=== PATIENT | male | born 2000 | race Caucasian/White ===

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

== ENCOUNTER 2020-08-16 13:36 | Emergency (ER) | payer BC, SELFPAY ==
[2020-08-16 13:38] VITALS: BP 136/86; PULSE 95; RESP 18; TEMP 36.7; O2SAT 100; BMI 18.3
[2020-08-16 16:05] LABS: Bedside Glucose 83 mg/dL (70-110)
[2020-08-16 16:17] VITALS: RESP 15
[2020-08-16] MEDS: 0.9% Normal Saline 1,000 ML 1000 ML IV (16:21)
[2020-08-16 16:24] LABS: Absolute Lymphocyte Count 1.38 X10^3/uL (0.83-4.51); Absolute Neutrophil Count 4.7 X10^3/uL (2.0-7.7); Basophil# 0.03 X10^3/uL; Basophil% 0.4 % (0-1); Eosinophil# 0.17 X10^3/uL; Eosinophils% 2.5 % (0-5); Hematocrit 49.8 % (40-54); Hemoglobin 16.8 g/dL (13.0-16.5); Lymphocyte # 1.38 X10^3/ul (4.0); Mean Corp Hgb Conc 33.7 g/dL (32-36); Mean Corpuscular Hgb 28.3 pg (27.0-32.0); Monocyte# 0.61 X10^3/uL; Monocyte% 8.9 % (0-10); NRBC Flagged by Analyzer 0 % (0-5); Neutrophil # 4.68 X10^3/uL (2.7-7.7); Neutrophil % 67.9 % (47-70); Platelet Count 345 K/mm3 (150-450); RBC Distribution Width CV 11.9 % (11.6-14.6); RBC Distribution Width SD 36.2 fl (35.1-43.9); Red Blood Count 5.93 M/mm3 (4.6-6.2); White Blood Count 6.9 K/mm3 (4.4-11.0)
[2020-08-16 16:36] LABS: Anion Gap 3 (5-15); BUN 11 mg/dL (7-18); Calcium,Total 9.6 mg/dL (8.5-10.1); Chloride 104 mmol/L (98-107); EST Glomerular Filtration Rate 101 mL/min (>60); Est Glom Filt Rate - Afr Amer 122 mL/min (>60); Estimated Creatinine Clearance 91.48 ml/min; Glucose 90 mg/dL (74-106); Potassium 3.9 mmol/L (3.5-5.1); Sodium Level 138 mmol/L (136-145)
--- NOTE | 2020-08-16 16:40 | ED.DCSUM_ITS ---
- ER Visit Summary Date of Service: 08/16/20 Chief Complaint: Weakness History of Present Illness: The patient is a 20 M with no primary care physician. He complains of generalized weakness off and on for the past 2 weeks. He denies fever, chills, sore throat, cough, chest pain, shortness of breath. No abdominal pain, nausea, vomiting, or diarrhea. No melena hematochezia. No dysuria or frequency. Physical Examination: Vitals: Stable. Afebrile. General: Well-nourished and well-developed. Head: Normocephalic atraumatic. Neck: Supple, no lymphadenopathy. No JVD. Nontender. Cardiovascular: Regular rate and rhythm. No murmurs. Respiratory: No respiratory distress. Clear to auscultation bilaterally. Abdominal: Soft, nontender, nondistended, normal bowel sounds. No guarding, rebound, or peritoneal signs. Back: Nontender. Extremities: Nontender, no edema. Skin: Normal color, no rash. Neurologic: Alert and oriented ?3. Cranial nerves II through XII are intact. Normal strength and sensation. Psych: Normal affect. Test Results: CBC shows a hemoglobin of 16.8.Chem-7 is normal. Accu-Chek is 83. Emergency Department Course and Treatment: Patient had an IV placed. He was given a liter normal saline. He is resting comfortably. Treatment Plan: Patient will be discharged instructions to push fluids. Follow- up with the [facility] in 3 to 5 days if not improving. Return to the emergency department for any worsening symptoms. Disposition: To home in improved and stable condition. Impression: 1. Weakness, uncertain cause. This note was generated with [employer] dictation software. It may contain incorrect words, spelling, and punctuation that were not noted in review of the chart prior to signing ED Disposition - Plan for ED Patient: Instructions: ED Weakness [facility] Referrals: Nuria [facility] [NON-STAFF] - 3-5 Days if not improving
[2020-08-16 17:09] VITALS: BP 122/88; PULSE 84; RESP 16; O2SAT 99
== END 2020-08-16 17:10 | disposition home or self-care (01) ==
LOC: ED 15:31
PROVIDERS: Emergency Provider Emergency Medicine
DX: R53.1 Weakness (principal)
CPT/HCPCS: 80048; 82962; 85025; 96360; 99283; J7030

== ENCOUNTER 2021-06-05 14:42 | Emergency (ER) | payer BC, SELFPAY ==
[2021-06-05 14:43] VITALS: BP 123/70; PULSE 80; RESP 16; TEMP 36.8; O2SAT 99; BMI 20.3
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
--- NOTE | 2021-06-05 15:15 | EDS_ITS ---
HPI HPI - GI History of Present Illness Chief Complaint: Abd Pain Detail of Chief Complaint: Abdominal pain for 4 days Informant: patient Abdominal Pain/Flank Pain Current Severity: 6/10 Nausea/Vomiting/Emesis GI Symptom: Positive for Nausea Narrative Narrative: Patient presents to the emergency department with complaint of abdominal pain that he has had for the last 4 days. Patient states that the pain is underneath his left ribs and at times it is in his right lower quadrant. Patient was told by work that he needed to have the pain evaluated before he came back. Patient denies any fevers. He has had some mild nausea but no vomiting. He denies blood in his stool or black tarry stool. He denies urinary symptoms. Patient is never had this pain before. He rates it a 6 out of 10. Patient states the pain is been continuous. Food does seem to affect it and make it worse.. Prior similar symptoms: No PFSH PFSH Home Medications lansoprazole [Prevacid] 30 mg PO DAILY 28 Days #28 cap 06/05/21 [Rx Last Taken Unknown] Allergy/AdvReac Type Severity Reaction Status Date / Time No Known Allergies Allergy Verified 06/05/21 14:44 Social History Smoking Status: Former smoker ROS ROS ED Constitutional Constitutional ED: Reports systems reviewed and no addt'l complaints, except as documented; Denies body ache(s), change in weight or chills Eyes Eyes: Denies acute decrease in peripheral vision, change in vision, double vision or loss of vision ENT ENT ED: Reports none; Denies ear pain, lip swelling, loss taste/smell, neck pain, otalgia or sore throat Cardiovascular Cardiovascular: Reports none; Denies abdominal pain, chest pain with activity, leg edema, lightheadedness, palpitations, rapid heart rate or syncope Respiratory/Chest Respiratory/Chest: Reports none; Denies change in mental status, dry cough, dyspnea, hemoptysis, shortness of breath at rest or shortness of breath with exertion Gastrointestinal Gastrointestinal: Reports none, abdominal pain and nausea; Denies change in stool character, diarrhea, hematemesis, hematochezia, melena, rectal bleeding or vomiting Genitourinary Genitourinary ED: Reports none; Denies abdominal discomfort, anuria, dysuria, genital pain or polyuria Musculoskeletal Musculoskeletal: Reports none; Denies arthralgias, back pain, difficulty walking, extremity pain, muscle weakness or myalgias Integumentary Reports none; Denies abscess or rash Neurologic Neurologic: Reports none; Denies abnormal gait, confusion, focal weakness, frequent falls, headache(s), loss of vision, numbness, paresthesias, radicular pain, vertigo or weakness Psychiatric Psychiatric: Reports systems reviewed and no addt'l complaints, except as documented and none; Denies behavioral changes, confusion, difficulty concentrating, hallucinations, suicidal ideation, tactile hallucinations or visual hallucinations Endocrine Endocrinology: Denies none, cold intolerance, excessive sweating, fatigue or heat intolerance Hematologic/Lymphatic Hematologic/Lymphatic: Reports none; Denies anemia, easy bleeding or easy b ruising Allergic/Immunologic Allergic/Immunologic ED: Denies as per HPI, none, lip swelling, mouth swelling, throat swelling, tongue swelling or hives EXAM Physical Exam Const Vital Signs: 06/05/21 14:43 Temperature 98.2 F Temperature Source Temporal Pulse Rate 80 Respiratory Rate 16 Blood Pressure 123/70 H Blood Pressure Mean 87 Pulse Ox 99 Oxygen Delivery Method Room Air Positive well nourished and well developed General Appearance ED: well developed and NAD HEENT Reports TM's clear and moist mucous membranes normocephalic and atraumatic; Negative for trauma or tenderness Tympanic Membrane ED: Yes TM's clear Eyes PERRL and EOMs intact bilaterally General Eye ED: Negative for pale conjunctiva or scleral icterus Neck no lymphadenopathy, supple and no JVD General: Negative for tenderness Chest Wall inspection of chest normal and palpation of chest normal Chest: Negative for tenderness Resp normal respiratory effort and clear to auscultation bilaterally Effort and Inspection: Negative for respiratory distress or pain with movement Auscultation: Negative for rhonchi, wheezes or diminished lung sounds Cardio regular rate, regular rhythm, S1 normal heart sound, S2 normal heart sound and no murmurs Peripheral Pulses: pulses 2+ throughout GI normal to inspection, nondistended, normoactive bowel sounds, soft to palpation, non-distended and no masses GI Narrative: Patient has diffuse tenderness to palpation over the epigastric region as well as the left upper quadrant with some mild guarding. Patient also with right lower quadrant tenderness on exam. There is no rebound, rigidity, or peritoneal signs. Palpation: tender Back/Spine no CVA tenderness and no thoracic nor lumbar tenderness Extremity normal to inspection General Extremety ED: Negative for edema General Extremity: Negative for edema Neuro oriented x3, CN's II-XII intact bilaterally, no sensory deficits noted and gait normal Sensorium / Orientation: awake, alert, oriented to person, oriented to place and oriented to time Motor Exam: strength 5/5 throughout and strength abnormal Psych mental status grossly normal Skin no rashes or lesions noted and no wounds MDM MDM MDM Narrative Medical decision making narrative: Patient's work-up in the emergency department unremarkable. I will start him on Prevacid for 30 days and refer to general surgery for follow-up if his symptoms persist may need further investigation such as possibly EGD and colonoscopy. Patient advised to return if worsening pain, fever, vomiting, or condition should worsen anyway. Lab Data Attestation: I reviewed the patient's lab results. Labs: Laboratory Results - last 24 hr 06/05/21 06/05/21 06/05/21 15:29 15:29 15:29 WBC 4.9 RBC 5.75 Hgb 16.2 Hct 47.4 MCV 82.4 MCH 28.2 MCHC 34.2 RDW Std Deviation 36.4 RDW Coeff of Caty 12.0 Plt Count 230 MPV 8.8 Immature Gran % (Auto) 0.200 Neut % (Auto) 61.9 Lymph % (Auto) 18.3 L [place] % (Auto) 16.8 H Eos % (Auto) 2.4 Baso % (Auto) 0.4 Absolute Neuts (auto) 3.1 Absolute Lymphs (auto) 0.90 Nucleated RBC % 0 Sodium 137 Potassium 3.8 Chloride 103 Carbon Dioxide 31.0 Anion Gap 3 L BUN 11 Creatinine 1.17 Estim Creat Clear Calc 83.32 Est GFR (MDRD) Af Amer 101 Est GFR (MDRD) Non-Af 84 BUN/Creatinine Ratio 9.4 L Glucose 81 Lactic Acid 0.8 Calcium 8.8 Total Bilirubin 1.30 H AST 11 L ALT 25 Alkaline Phosphatase 57 Total Protein 8.5 H Albumin 4.2 Globulin 4.3 H Albumin/Globulin Ratio 1.0 Lipase 48 L Urine Color Urine Clarity Urine pH Ur Specific [place] Urine Protein Urine Glucose (UA) Urine Ketones Urine Occult Blood Urine Nitrite Urine Bilirubin Urine Urobilinogen Ur Leukocyte Esterase Urine RBC Urine WBC Ur Squamous Epith Cells Urine Bacteria Urine Mucus 06/05/21 15:45 WBC RBC Hgb Hct MCV MCH MCHC RDW Std Deviation RDW Coeff of Caty Plt Count MPV Immature Gran % (Auto) Neut % (Auto) Lymph % (Auto) [place] % (Auto) Eos % (Auto) Baso % (Auto) Absolute Neuts (auto) Absolute Lymphs (auto) Nucleated RBC % Sodium Potassium Chloride Carbon Dioxide Anion Gap BUN Creatinine Estim Creat Clear Calc Est GFR (MDRD) Af Amer Est GFR (MDRD) Non-Af BUN/Creatinine Ratio Glucose Lactic Acid Calcium Total Bilirubin AST ALT Alkaline Phosphatase Total Protein Albumin Globulin Albumin/Globulin Ratio Lipase Urine Color Yellow Urine Clarity Clear Urine pH 6.5 Ur Specific [place] 1.015 Urine Protein 15 H Urine Glucose (UA) Normal Urine Ketones 5 H Urine Occult Blood 10 H Urine Nitrite Negative Urine Bilirubin 1 H Urine Urobilinogen 4 H Ur Leukocyte Esterase 25 H Urine RBC 0 SEEN Urine WBC 0 SEEN Ur Squamous Epith Cells 0 SEEN Urine Bacteria RARE Urine Mucus 1+ Radiography Diagnostic Testing: Radiology Impression Abdomen/Pelvis CT 06/05/21 15:14 IMPRESSION: 1 to 2 mm nonobstructing right lower pole calyceal stone. Otherwise unremarkable unenhanced CT of the abdomen and pelvis. Electronically Signed: Amos Venegas MD at 16:40 EDT Tel , Service support , Discharge Plan Triage Chief Complaint: Abd Pain ED Provider: Marquez Bell Dx/Rx/DC Orders Clinical Impression: Abdominal pain Instructions: ED Unknown Causes of Abdominal ... Prescriptions: New lansoprazole [Prevacid] 30 mg capsule,delayed release(DR/EC) 30 mg PO DAILY 28 Days Qty: 28 RF: 0 Primary Care Provider: Lara Alonso Referrals: Lara Alonso MD [Primary Care Provider] - Sherry Brice MD [STAFF PHYSICIAN] - 3-5 Days Disposition Disposition: Home, Self Care
[2021-06-05] MEDS: 0.9% Normal Saline 1,000 ML 125 ML IV (15:32)
[2021-06-05 15:36] LABS: Absolute Neutrophil Count 3.1 X10^3/uL (2.0-7.7); Basophil# 0.02 X10^3/uL; Basophil% 0.4 % (0-1); Eosinophil# 0.12 X10^3/uL; Eosinophils% 2.4 % (0-5); Hematocrit 47.4 % (40-54); Hemoglobin 16.2 g/dL (13.0-16.5); Lymphocyte % 18.3 % (19-41); Mean Corp Hgb Conc 34.2 g/dL (32-36); Mean Corpuscular Hgb 28.2 pg (27.0-32.0); Mean Corpuscular Volume 82.4 fL (80-94); Mean Platelet Vol. 8.8 fl (6.2-12.0); Monocyte# 0.83 X10^3/uL; Monocyte% 16.8 % (0-10); NRBC Flagged by Analyzer 0 % (0-5); Neutrophil # 3.05 X10^3/uL (2.7-7.7); Neutrophil % 61.9 % (47-70); Platelet Count 230 K/mm3 (150-450); RBC Distribution Width SD 36.4 fl (35.1-43.9); Red Blood Count 5.75 M/mm3 (4.6-6.2); White Blood Count 4.9 K/mm3 (4.4-11.0)
[2021-06-05 15:50] LABS: Red Blood Cells-Urine 0 SEEN /hpf (0-5); Squamous Epithelial Cells - UA 0 SEEN /hpf (0-5); White Blood Cells 0 SEEN /hpf (0-5)
[2021-06-05 15:55] LABS: Color, Urine Yellow (Yellow); Glucose, Dipstick Normal (Normal); Ketone-Dipstick 5 mg/dl (Negative); Leukocyte Esterase-Dipstick 25 /ul (Negative); Nitrite-Dipstick Negative (Negative); Occult Blood-Urine 10 /ul (Negative); Protein-Dipstick 15 mg/dl (Negative); Specific Gravity, Urine 1.015 (1.002-1.030); Urine Clarity Clear (Clear); Urine Urobilinogen 4 mg/dl (Normal); Urine pH 6.5 (5.0 - 8.0)
[2021-06-05 15:56] LABS: AST(SGOT) 11 U/L (15-37); Alanine Aminotransfer ALT/SGPT 25 U/L (16-61); Albumin, Serum 4.2 g/dL (3.2-5.0); Alkaline Phosphatase 57 U/L (45-117); Anion Gap 3 (5-15); BUN 11 mg/dL (7-18); BUN/Creat Ratio 9.4 RATIO (10-20); Calcium,Total 8.8 mg/dL (8.5-10.1); Chloride 103 mmol/L (98-107); Creatinine, Serum 1.17 mg/dL (0.70-1.30); EST Glomerular Filtration Rate 84 mL/min (>60); Est Glom Filt Rate - Afr Amer 101 mL/min (>60); Estimated Creatinine Clearance 83.32 ml/min; Globulin 4.3 g/dL (2.2-4.2); Glucose 81 mg/dL (74-106); Lipase 48 U/L (73-393); Potassium 3.8 mmol/L (3.5-5.1); Protein, Total 8.5 g/dL (6.4-8.2); Sodium Level 137 mmol/L (136-145)
[2021-06-05 16:03] LABS: Lactic Acid 0.8 mmol/L (0.4-1.9)
[2021-06-05 16:09] LABS: Urine Bilirubin Dipstick 1 mg/dL (Negative)
[2021-06-05 16:10] LABS: Bacteria RARE /hpf (None Seen); Mucous, Urine 1+ /hpf (<or=2+)
== END 2021-06-05 17:12 | disposition home or self-care (01) ==
PROVIDERS: Emergency Provider Emergency Medicine; PCP Pediatrics
DX: R10.13 Epigastric pain (principal); R10.12 Left upper quadrant pain; R10.31 Right lower quadrant pain; Z87.891 Personal history of nicotine dependence
CPT/HCPCS: 74176; 80053; 81001; 83605; 83690; 85025; 96360; 96361; 99284; J7030; A4216

== ENCOUNTER 2021-10-11 18:22 | Emergency (ER) | payer OTHER, BC, SELFPAY ==
[2021-10-11 18:22] VITALS: BP 129/86; PULSE 85; RESP 16; TEMP 35.9; O2SAT 100; BMI 20.3
--- NOTE | 2021-10-11 19:42 | EX.ED.VIS.UR ---
HPI HPI - URI History of Present Illness Chief Complaint: Cold Sx Narrative Narrative: 21-year-old male presenting with a cough, mild headache for 2 to 3 days. Patient states he was at work and was sent home. He states his work requested to go to the emergency room to be tested for Covid. He denies chest pain or shortness of breath. He denies fever or chills. He states he feels otherwise well and would work. ROS ROS ED Constitutional Constitutional ED: Denies chills or fever(s) Eyes Eyes: Denies blurry vision or diplopia ENT ENT ED: Denies rhinorrhea or sore throat Cardiovascular Cardiovascular: Denies chest pain or palpitations Respiratory/Chest Respiratory/Chest: Reports cough; Denies dyspnea Gastrointestinal Gastrointestinal: Denies abdominal pain, nausea or vomiting Genitourinary Genitourinary ED: Denies dysuria or hematuria Musculoskeletal Musculoskeletal: Denies arthralgias, myalgias or neck pain Integumentary Denies Abrasions or rash Neurologic Neurologic: Reports headache(s); Denies paresthesias or weakness PFSH PFSH Medical History Abdominal pain Dark stools LUQ abdominal pain Nausea Allergy/AdvReac Type Severity Reaction Status Date / Time No Known Allergies Allergy Verified 10/11/21 18:25 Family History Father Diabetes Surgical History Hx of knee surgery Social History Smoking Status: Current some day smoker tobacco type: cigarettes alcohol intake: current alcohol intake frequency: a few times a week substance use type: does not use caffeine: Yes what type of physical activity do you participate in: none frequency: does not exercise EXAM Physical Exam Const Vital Signs: 10/11/21 18:22 10/11/21 19:57 Temperature 96.6 F L Temperature Source Temporal Pulse Rate 85 Respiratory Rate 16 Respiratory Pattern Normal Blood Pressure 129/86 H Blood Pressure Mean 100 Pulse Ox 100 Oxygen Delivery Method Room Air Positive well nourished General Appearance ED: NAD; Negative for pallor HEENT Reports moist mucous membranes normocephalic and atraumatic Eyes PERRL and EOMs intact bilaterally Resp normal respiratory effort and clear to auscultation bilaterally Cardio Rate: regular rate Rhythm: regular rhythm Neuro oriented x3 and CN's II-XII intact bilaterally Sensorium / Orientation: alert Psych mental status grossly normal Skin General Skin Exam: Negative for jaundice or pallor MDM MDM MDM Narrative Medical decision making narrative: Patient request testing for COVID-19 for work. He has a mild cough and mild headache. He declines analgesia. Patient will be tested with rapid Covid. Patient prefers to be discharged home in have his wrote texted to him. Patient given quarantine restrictions and return precautions. Patient's COVID-19 testing came back positive. Patient previously given quarantine instruction return precautions. Impression: 1. COVID-19 Discharge Plan Triage Chief Complaint: Cold Sx ED Provider: Blake Karimi Dx/Rx/DC Orders Instructions: Coronavirus Disease 2019 (COVID-19): Caring for Yourself or Others Primary Care Provider: Lara Alonso Referrals: Lara Alonso MD [Primary Care Provider] - Disposition Disposition: Home, Self Care Discharge Date/Time: 10/11/21 20:30
== END 2021-10-11 20:30 | disposition home or self-care (01) ==
PROVIDERS: Emergency Provider Student in an Organized Health Care Education/Training Program; PCP Pediatrics
DX: U07.1 COVID-19 (principal); F17.210 Nicotine dependence, cigarettes, uncomplicated
CPT/HCPCS: 87426; 99282

== ENCOUNTER 2024-01-21 22:12 | Emergency (ER) | payer OTHER, SELFPAY ==
[2024-01-21 22:13] VITALS: BP 115/80; PULSE 95; RESP 16; TEMP 36.6; O2SAT 100
[2024-01-21] MEDS: 0.9% Normal Saline (1000mL) 1,000 ML 1000 ML IV ×2 (22:42→23:45)
[2024-01-21 22:50] VITALS: PULSE 68; RESP 24
[2024-01-21 23:25] VITALS: PULSE 61; RESP 12; TEMP 37.1; O2SAT 100
[2024-01-21 23:40] LABS: Absolute Lymphocyte Count 0.59 X10^3/uL (0.83-4.51); Absolute Neutrophil Count 14.6 X10^3/uL (2.0-7.7); Basophil# 0.05 X10^3/uL; Basophil% 0.3 % (0-1); Eosinophil# 0.06 X10^3/uL; Eosinophils% 0.4 % (0-5); Hematocrit 51.2 % (40-54); Hemoglobin 17.6 g/dL (13.0-16.5); Lymphocyte # 0.59 X10^3/ul (0.83-4.51); Lymphocyte % 3.6 % (19-41); Mean Corp Hgb Conc 34.4 g/dL (32-36); Mean Corpuscular Hgb 27.8 pg (27.0-32.0); Mean Platelet Vol. 9.5 fl (6.2-12.0); Monocyte# 1.08 X10^3/uL; Monocyte% 6.6 % (0-10); NRBC Flagged by Analyzer 0 % (0-5); Neutrophil % 88.7 % (47-70); POSITIVE DIFFERENTIAL YES; Platelet Count 292 K/mm3 (150-450); RBC Distribution Width CV 12.3 % (11.6-14.6); RBC Distribution Width SD 35.8 fl (35.1-43.9); Red Blood Count 6.32 M/mm3 (4.6-6.2); White Blood Count 16.5 K/mm3 (4.4-11.0)
[2024-01-21] MEDS: DiphenhydrAMINE 50 MG/ML Syringe IV (23:42)
[2024-01-21] MEDS: proCHLORPERazine 10 MG/2 ML Vial IV (23:42)
[2024-01-21 23:59] LABS: AST(SGOT) 17 U/L (15-37); Alanine Aminotransfer ALT/SGPT 36 U/L (16-61); Albumin, Serum 5.1 g/dL (3.2-5.0); Alkaline Phosphatase 63 U/L (45-117); Anion Gap 11 (5-15); BUN 15 mg/dL (7-18); BUN/Creat Ratio 11.7 RATIO (10-20); Bilirubin, Direct 1.25 mg/dL (0.00-0.30); Calcium,Total 10.1 mg/dL (8.5-10.1); Chloride 103 mmol/L (98-107); Creatinine, Serum 1.28 mg/dL (0.70-1.30); EST Glomerular Filtration Rate 74 mL/min (>60); Est Glom Filt Rate - Afr Amer 89 mL/min (>60); Globulin 4.2 g/dL (2.2-4.2); Glucose 128 mg/dL (74-106); Potassium 4.1 mmol/L (3.5-5.1); Protein, Total 9.3 g/dL (6.4-8.2); Sodium Level 138 mmol/L (136-145)
--- NOTE | 2024-01-22 00:01 | EX.ED.DYSGE1 ---
HPI History of Present Illness Chief Complaint: Nausea/Vomiting/Diarrhea Informant: patient and family Narrative Narrative: 23-year-old male presenting to the emergency room with vomiting diarrhea. It is reported that the patient has been around multiple family members who have had vomiting and diarrhea. His symptoms began today. Denies any bad food exposure, recent travel, rashes, fever. No blood in the stool or the vomit. No recent alcohol use. Patient states that he cannot seem to get the nausea to calm down. PFSH PFSH Medical History Abdominal pain LUQ abdominal pain Nausea Allergy/AdvReac Type Severity Reaction Status Date / Time No Known Allergies Allergy Verified 01/21/24 22:14 Family History Father Diabetes Surgical History Hx of knee surgery Social History Smoking Status: Current some day smoker tobacco type: cigarettes alcohol intake: current alcohol intake frequency: a few times a week substance use type: does not use caffeine: Yes what type of physical activity do you participate in: none frequency: does not exercise ROS ROS ED Constitutional Constitutional ED: Denies chills, fever(s) or weight loss Eyes Eyes: Denies change in vision or diplopia ENT ENT ED: Denies ear pain, rhinorrhea or sore throat Cardiovascular Cardiovascular: Denies chest pain, orthopnea, palpitations or racing heartbeat Respiratory/Chest Respiratory/Chest: Denies cough, dyspnea or orthopnea Gastrointestinal Gastrointestinal: Reports diarrhea, nausea and vomiting; Denies abdominal pain Genitourinary Genitourinary ED: Denies dysuria, hematuria or urinary frequency Musculoskeletal Musculoskeletal: Denies arthralgias, back pain, myalgias or neck pain Integumentary Denies abscess or rash Neurologic Neurologic: Denies headache(s) or weakness Psychiatric Psychiatric: Denies anxiety, depression, suicidal ideation or suicidal thoughts Endocrine Endocrinology: Denies polydipsia, polyphagia or polyuria Allergic/Immunologic Allergic/Immunologic ED: Denies mouth swelling, tongue swelling or urticaria EXAM Physical Exam Narrative Exam Narrative: Patient is constantly retching. Const Vital Signs: 01/21/24 22:13 01/21/24 22:49 01/21/24 22:50 Temperature 97.9 F Temperature Source Temporal Pulse Rate 95 68 Respiratory Rate 16 24 H Respiratory Effort Normal Respiratory Pattern Normal Blood Pressure 115/80 Blood Pressure Mean 91 Pulse Ox 100 Oxygen Delivery Method Room Air Room Air 01/21/24 23:25 Temperature 98.7 F Temperature Source Oral Pulse Rate 61 Respiratory Rate 12 Respiratory Effort Respiratory Pattern Blood Pressure Blood Pressure Mean Pulse Ox 100 Oxygen Delivery Method Room Air Positive well nourished and well developed General Appearance ED: well developed HEENT Reports normocephalic, head/scalp atraumatic and moist mucous membranes Eyes PERRL and EOMs intact bilaterally Neck no lymphadenopathy, supple and no JVD Resp normal respiratory effort and clear to auscultation bilaterally Cardio regular rate, regular rhythm and no murmurs GI normal to inspection, nondistended, normoactive bowel sounds and non-tender Palpation: soft Back/Spine no CVA tenderness and normal ROM Extremity normal to inspection General Extremety ED: Negative for edema General Extremity: Negative for edema Neuro oriented x3 and CN's II-XII intact bilaterally Sensorium / Orientation: alert Motor Exam: strength 5/5 throughout Psych mental status grossly normal Mood & Affect: Negative for depressed or tearful Skin no rashes or lesions noted and no wounds MDM MDM MDM Narrative Medical decision making narrative: IV established patient received IV fluids Compazine and Benadryl. White count is elevated 16.5 which may be stress-induced. Hemoglobin 17.6 possibly representing some hemoconcentration but could also be elevated due to tobacco use. Total bilirubin 3.2 with a direct bili of 1.25. Transaminases and alk phos are normal. He does have a history of an elevated bilirubin. Glucose of 128 BUN of 15 anion gap of 11 CO2 24. Patient will be reassessed after his IV fluids. He currently is resting comfortably. History & Record Review Discussion w/independent historian: Patient and Family Lab Data Attestation: I reviewed the patient's lab results. Labs: Laboratory Results - last 24 hr 01/21/24 22:20 WBC 16.5 H RBC 6.32 H Hgb 17.6 H Hct 51.2 MCV 81.0 MCH 27.8 MCHC 34.4 RDW Std Deviation 35.8 RDW Coeff of Caty 12.3 Plt Count 292 MPV 9.5 Immature Gran % (Auto) 0.400 Neut % (Auto) 88.7 H Lymph % (Auto) 3.6 L [place] % (Auto) 6.6 Eos % (Auto) 0.4 Baso % (Auto) 0.3 Absolute Neuts (auto) 14.6 H Absolute Lymphs (auto) 0.59 L Nucleated RBC % 0 Sodium 138 Potassium 4.1 Chloride 103 Carbon Dioxide 24.0 Anion Gap 11 BUN 15 Creatinine 1.28 Est GFR (MDRD) Af Amer 89 Est GFR (MDRD) Non-Af 74 BUN/Creatinine Ratio 11.7 Glucose 128 H Calcium 10.1 Total Bilirubin 3.20 H Direct Bilirubin 1.25 H AST 17 ALT 36 Alkaline Phosphatase 63 Total Protein 9.3 H Albumin 5.1 H Globulin 4.2 Discharge Plan Triage Chief Complaint: Nausea/Vomiting/Diarrhea ED Provider: Cali Thomas Dx/Rx/DC Orders Primary Care Provider: Lara Alonso Referrals: Lara Alonso MD [Primary Care Provider] -
[2024-01-22 00:35] VITALS: BP 120/79; PULSE 64; RESP 12; TEMP 36.6; O2SAT 100
--- OUTSIDE RECORDS SUMMARY | 2024-01-22 00:48 | XMS RPT_ITS | CCD ---
Author Name Unknown Address [address] [place] [address] Organization [facility] Results Test Name Value Interpretation Reference Range Facil ity Progress note 06-05-2021 Note Date & Type Note Facility 06-05-2021 Note HNO ID: [id number] Author: Vern Ewing APRN.SENIOR SOFTWARE TEST ENGINEER Service: ? Author Type: Nurse Practitioner Type: Progress Notes Filed: 06/05/2021 2:39 PM Note Text: Subjective HPI HPI Dillna Muniz is a 21 year old male who presents today for CC of left sided abd pain. This started 4 days ago, getting worse, rates 7/10. Has tried nothing for relief. Symptoms are worsened by eating anything, touching area, or twisting body. No injury noted. Denies bowel habit changes. Denies urinary symptoms. .Patient presents with: abdomen and groin pain: x 4 days-he thinks it may be a hernia PAST MEDICAL HISTORY Diagnosis Date - PM - PAST MEDICAL HISTORY OF 07/07/2005 normal color vision PAST SURGICAL HISTORY Procedure Laterality Date - CIRCUMCISION,OTHR, ALLERGIES Patient has no known allergies. MEDICATIONS methylphenidate ER (CONCERTA) 36 mg CR tablet Take 1 tablet by mouth once daily for 30 days.Earliest Fill Date: 02/08/19 methylphenidate ER (CONCERTA) 36 mg CR tablet Take 1 tablet by mouth once daily for 90 days.Earliest Fill Date: 10/06/18 FAMILY HISTORY Problem Relation Age of Onset - Cancer Unknown maternal and paternal side - Diabetes Unknown paternal side - Heart Paternal Grandmother - other (diabetes [Other]) Maternal Uncle - other (depression [Other]) Paternal Grandmother - other (depression [Other]) Mother Social History Tobacco Use - Smoking status: Passive Smoke Exposure - Never Smoker - Smokeless tobacco: Never Used - Tobacco comment: quit Substance Use Topics - Alcohol use: No - Drug use: No ROS Objective Blood pressure 112/72, pulse 82, temperature 36.4 ?C (97.5 ?F), temperature source Tympanic, resp. rate 18, weight 57 kg (125 lb 9.6 oz), SpO2 98 %. Physical Exam Constitutional: Appearance: He is not toxic-appearing or diaphoretic. Comments: Appears in pain. HENT: Head: Normocephalic and atraumatic. Pulmonary: Effort: Pulmonary effort is normal. No accessory muscle usage or respiratory distress. Abdominal: General: Bowel sounds are normal. Palpations: Abdomen is soft. Tenderness: There is abdominal tenderness in the left upper quadrant and left lower quadrant. Comments: No visible or palpable abnormality noted. Neurological: Mental Status: He is alert and oriented to person, place, and time. ASSESSMENT/PLAN: 1. Abdominal pain, unspecified abdominal location - ICD9: 789.00, ICD10: R10.9 Will refer to ER, concerns for intraabdominal abnormality Significant other to drive pov to [facility] ER, passport sent. Vern Ewing APRN.[facility] Summary Purpose Family History No Family History Records Found Advance Directives No Advanced Directives Records Found Additional Source Comments (unrecognized sect ion and content) No Status Records Found INFORMATION SOURCE (unrecogn ized section and content) FOR RECORDS PERTAINING TO PATIENTS WHO ARE OR HAVE BEEN ENROLLED IN A CHEMICAL DEPENDENCY/SUBSTANCEABUSE PROGRAM, SOME INFORMATION MAY BE OMITTED. This clinical summary was aggregated from multiple sources. Caution should be exercised in using it in the provision of clinical care. This summary normalizes information from multiple sources, and as a consequence, information in this document may materially change the coding, format and clinical context of patient data. In addition, data may be omitted in some cases. CLINICAL DECISIONS SHOULD BE BASED ON THE PRIMARY CLINICAL RECORDS. [employer] provides no warranty or guarantee of the accuracy or completeness of information in this document.
== END 2024-01-22 00:53 | disposition home or self-care (01) ==
LOC: ED 01-22 00:47
PROVIDERS: Emergency Provider Emergency Medicine; Visit Provider Emergency Medicine
DX: R11.2 Nausea with vomiting, unspecified (principal); F17.210 Nicotine dependence, cigarettes, uncomplicated; R19.7 Diarrhea, unspecified
CPT/HCPCS: 80048; 80076; 85025; 87631; 96361; 96374; 96375; 99283; J7030; A4216

== ENCOUNTER 2024-06-12 11:59 | Emergency (ER) | payer OTHER, SELFPAY ==
[2024-06-12 11:59] VITALS: BP 126/78; PULSE 85; RESP 22; TEMP 35.7; O2SAT 100
--- NOTE | 2024-06-12 12:12 | ED.VIS.GI ---
HPI HPI - GI History of Present Illness Chief Complaint: Nausea/Vomiting/Diarrhea Narrative Narrative: 24-year-old male presenting with epigastric pain, nausea, vomiting. He describes the pain as burning. He states he has a history of gastritis and his last episode about a year ago. Patient reports he only had a couple of beers last night his significant other states that he did drink a lot of water yesterday. This morning he woke up not feeling well and then started to have episodes of vomiting. No history of pancreatitis. No fevers. PFSH PFSH Medical History Nausea LUQ abdominal pain Abdominal pain Home Medications ?Medication ?Instructions ?Recorded ?Last Taken ?Type ondansetron 4 mg disintegrating 4 mg PO Q6H PRN PRN Nausea #15 tabs 01/22/24 Unknown Rx tablet ondansetron 4 mg disintegrating 4 mg PO Q8H PRN PRN Nausea #14 tabs 06/12/24 Unknown Rx tablet Allergy/AdvReac Type Severity Reaction Status Date / Time No Known Allergies Allergy Verified 06/12/24 11:59 Family History Father Diabetes Surgical History Hx of knee surgery Social History Smoking Status: Current some day smoker tobacco type: cigarettes alcohol intake: current alcohol intake frequency: a few times a week substance use type: does not use caffeine: Yes what type of physical activity do you participate in: none frequency: does not exercise ROS ROS ED Constitutional Constitutional ED: Denies chills, fever(s) or sweats Eyes Eyes: Denies blurry vision or change in vision ENT ENT ED: Denies ear pain or sore throat Cardiovascular Cardiovascular: Denies chest pain, palpitations or racing heartbeat Respiratory/Chest Respiratory/Chest: Denies cough, dyspnea or sputum Gastrointestinal Gastrointestinal: Reports abdominal pain, nausea and vomiting; Denies constipation or diarrhea Genitourinary Genitourinary ED: Denies dysuria, hematuria or urinary frequency Musculoskeletal Musculoskeletal: Denies arthralgias, myalgias or neck pain Integumentary Denies abscess, Abrasions or rash Neurologic Neurologic: Denies headache(s), paresthesias or weakness Psychiatric Psychiatric: Denies anxiety, depression, suicidal ideation or suicidal thoughts Endocrine Endocrinology: Denies polydipsia or polyuria EXAM Physical Exam Const Vital Signs: 06/12/24 11:59 06/12/24 13:59 Temperature 96.2 F L Temperature Source Temporal Pulse Rate 85 51 L Respiratory Rate 22 H 16 Blood Pressure 126/78 H 111/78 Blood Pressure Mean 94 89 Pulse Ox 100 99 Oxygen Delivery Method Room Air Room Air Positive well nourished General Appearance ED: NAD; Negative for pallor Eyes EOMs intact bilaterally Neck no lymphadenopathy Resp normal respiratory effort and clear to auscultation bilaterally Auscultation: Negative for rales, rhonchi or wheezes Cardio regular rate and regular rhythm GI Palpation: tender epigastric Neuro CN's II-XII intact bilaterally and moves all extremities Sensorium / Orientation: alert Motor Exam: strength 5/5 throughout Psych mental status grossly normal Skin General Skin Exam: Negative for jaundice or pallor MDM MDM MDM Narrative Medical decision making narrative: Patient presenting with epigastric pain, nausea,. Differential includes colitis, diverticulitis, gastritis, pancreatitis, acute cholecystitis, constipation, appendicitis, UTI, pyelonephritis, calculi, ureteral calculi, obstruction, malignancy, dehydration, electrolyte abnormalities. CBC will be obtained to assess white blood cell count, hemoglobin, platelets. CMP to assess renal function, electrolytes, liver function, glucose. Lipase to assess for pancreatitis. Urinalysis to assess for UTI. IV line was established. Patient given morphine, Zofran, IV fluids. On reevaluation patient was still having some nausea. He was given IM Phenergan. He states this did help. He was able to pass a p.o. challenge. CBC shows a mild leukocytosis 12.6 which is likely reactive. Hemoglobin stable at 16.5. Platelets 315. Renal function electrolytes within normal limits. Total bilirubin 1.70 although patient has a history of this. His other LFTs are unremarkable. Lipase is negative. I do not believe he needs any imaging. Will give him Zofran for home. Impression: 1. Nausea/vomiting 2. gastritis Lab Data Labs: Laboratory Results - last 24 hr 06/12/24 12:25 WBC 12.6 H RBC 5.91 Hgb 16.5 Hct 47.9 MCV 81.0 MCH 27.9 MCHC 34.4 RDW Std Deviation 35.3 RDW Coeff of Caty 12.1 Plt Count 315 MPV 9.2 Immature Gran % (Auto) 0.500 Neut % (Auto) 85.3 H Lymph % (Auto) 7.7 L [place] % (Auto) 5.7 Eos % (Auto) 0.5 Baso % (Auto) 0.3 Absolute Neuts (auto) 10.7 H Absolute Lymphs (auto) 0.97 Nucleated RBC % 0 Sodium 136 Potassium 4.4 Chloride 105 Carbon Dioxide 23.0 Anion Gap 8 BUN 13 Creatinine 1.23 Estim Creat Clear Calc 75.71 Est GFR (MDRD) Af Amer 93 Est GFR (MDRD) Non-Af 77 BUN/Creatinine Ratio 10.6 Glucose 119 H Calcium 9.9 Total Bilirubin 1.70 H AST 32 ALT 46 Alkaline Phosphatase 58 Total Protein 9.0 H Albumin 4.7 Globulin 4.3 H Albumin/Globulin Ratio 1.1 Lipase 21 Discharge Plan Triage Chief Complaint: Nausea/Vomiting/Diarrhea ED Provider: Blake Karimi Dx/Rx/DC Orders Instructions: ED Gastritis (Adult) Prescriptions: New ondansetron 4 mg tablet,disintegrating 4 mg PO Q8H PRN PRN (Reason: Nausea) Qty: 14 0RF No Action ondansetron [ondansetron] 4 mg tablet,disintegrating 4 mg PO Q6H PRN PRN (Reason: Nausea) Qty: 15 0RF Primary Care Provider: Care Physician,No Primary Referrals: Friend,Sam, [Med Staff - Active Staff] - 3-5 Days Care Physician,No Primary [Primary Care Provider] - Print Language: [place] Disposition Disposition: Home, Self Care
[2024-06-12] MEDS: Ondansetron 4 MG/2 ML Vial IV (12:26)
[2024-06-12] MEDS: Morphine 4 MG/ML Syringe IV (12:26)
[2024-06-12] MEDS: 0.9% Normal Saline (1000mL) 1,000 ML 999 ML IV (12:26)
[2024-06-12 12:28] VITALS: BMI 18.8
[2024-06-12 12:35] LABS: Absolute Lymphocyte Count 0.97 X10^3/uL (0.83-4.51); Absolute Neutrophil Count 10.7 X10^3/uL (2.0-7.7); Basophil# 0.04 X10^3/uL; Basophil% 0.3 % (0-1); Eosinophil# 0.06 X10^3/uL; Eosinophils% 0.5 % (0-5); Hematocrit 47.9 % (40-54); Hemoglobin 16.5 g/dL (13.0-16.5); Lymphocyte # 0.97 X10^3/ul (0.83-4.51); Lymphocyte % 7.7 % (19-41); Mean Corp Hgb Conc 34.4 g/dL (32-36); Mean Corpuscular Hgb 27.9 pg (27.0-32.0); Mean Platelet Vol. 9.2 fl (6.2-12.0); Monocyte# 0.72 X10^3/uL; Monocyte% 5.7 % (0-10); NRBC Flagged by Analyzer 0 % (0-5); Neutrophil # 10.74 X10^3/uL (2.7-7.7); Neutrophil % 85.3 % (47-70); Platelet Count 315 K/mm3 (150-450); RBC Distribution Width CV 12.1 % (11.6-14.6); RBC Distribution Width SD 35.3 fl (35.1-43.9); Red Blood Count 5.91 M/mm3 (4.6-6.2); White Blood Count 12.6 K/mm3 (4.4-11.0)
[2024-06-12 13:06] LABS: ALB/GLOB Ratio 1.1 RATIO (0.9-2.4); AST(SGOT) 32 U/L (15-37); Alanine Aminotransfer ALT/SGPT 46 U/L (16-61); Albumin, Serum 4.7 g/dL (3.2-5.0); Alkaline Phosphatase 58 U/L (45-117); Anion Gap 8 (5-15); BUN 13 mg/dL (7-18); BUN/Creat Ratio 10.6 RATIO (10-20); Calcium,Total 9.9 mg/dL (8.5-10.1); Chloride 105 mmol/L (98-107); Creatinine, Serum 1.23 mg/dL (0.70-1.30); EST Glomerular Filtration Rate 77 mL/min (>60); Est Glom Filt Rate - Afr Amer 93 mL/min (>60); Estimated Creatinine Clearance 75.71 ml/min; Globulin 4.3 g/dL (2.2-4.2); Glucose 119 mg/dL (74-106); Lipase 21 U/L (13-75); Potassium 4.4 mmol/L (3.5-5.1); Sodium Level 136 mmol/L (136-145)
[2024-06-12] MEDS: proMETHazine 25 MG/ML Syringe 12.5 MG IM (13:40)
[2024-06-12 13:59] VITALS: BP 111/78; PULSE 51; RESP 16; O2SAT 99
[2024-06-12 15:09] VITALS: BP 110/65; PULSE 55; RESP 14; TEMP 37.1; O2SAT 98
== END 2024-06-12 15:10 | disposition home or self-care (01) ==
PROVIDERS: Emergency Provider Student in an Organized Health Care Education/Training Program; Visit Provider Student in an Organized Health Care Education/Training Program
DX: R11.2 Nausea with vomiting, unspecified (principal); K29.70 Gastritis, unspecified, without bleeding; R19.7 Diarrhea, unspecified; F17.210 Nicotine dependence, cigarettes, uncomplicated
CPT/HCPCS: 80053; 83690; 85025; 96361; 96372; 96374; 96375; 99283; J7030; A4216; J2405